=== PATIENT | female | born 1985 | race Caucasian/White ===

== ENCOUNTER 2016-10-28 05:16 | Day surgery (SDC) | payer BC, MEDICAID ==
[2016-10-25 14:16] LABS: BASOPHILS 0.3 % (0.0-2.0); EOSINOPHILS 0.4 % (0-7); HEMATOCRIT 37.5 % (36.0-48.0); HEMOGLOBIN 12.6 g/dL (12-16); LYMPHOCYTES 29.8 % (15-50); MCH 30.2 pg (26.0-34.0); MCHC 33.6 g/dL (31.0-37.0); MCV 89.9 fL (80.0-100.0); MEAN PLATELET VOLUME 9.6 fL (7.4-10.4); MONOCYTES 7.9 % (2-11); NEUTROPHILS 61.6 % (40-80); PLATELET COUNT 244 10x3/uL (130-400); RBC 4.17 10x6/uL (4.00-5.40); RDW 12.4 % (11.5-14.5); WBC 7.2 10x3/uL (4.8-10.8)
[~2016-10-28] VITALS: Ht 162.6 cm; Wt 56.7 kg
[~2016-10-28 05:16] MED LIST: OMEPRAZOLE20 M1 PO; PROZAC20 MG PO; SYNTHROID50 MCG PO
[2016-10-28 06:17] VITALS: BP 113/72; Ht 162.6 cm; Wt 56.7 kg
[2016-10-28 06:28] LABS: HCG URINE NEGATIVE (NEGATIVE)
--- NOTE | 2016-10-28 11:35 | NUR ---
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
--- NOTE | 2016-11-01 07:53 | OP ---
PATIENT NAME: TERESA HECTOR MEDICAL RECORD: [id number] :89 LOCATION:D.OPS ADMISSION DATE: SURGEON: JAELYN WESTBROOK MD DATE OF OPERATION: 10/28/2016 PREOPERATIVE DIAGNOSIS: Left ovarian cyst. POSTOPERATIVE DIAGNOSIS: Multiple simple and complex left ovarian cyst. SURGEON: Jaelyn Westbrook MD ANESTHESIA: General endotracheal anesthesia with Pradeep Cooper CRNA. PROCEDURE: 1. Diagnostic laparoscopy. 2. Left ovarian cystectomy. 3. Left ovarian cyst drainage. FINDINGS: Left ovary with multiple simple and complex appearing cyst, approximately 20-30 cc of blood was noted in the cul-de-sac upon entry. Otherwise, normal appearing uterus, right ovary, bilateral fallopian tubes, appendix and gallbladder. No endometriosis nor adhesions were visualized. DESCRIPTION OF THE PROCEDURE: After informed consent was given, the patient was taken to the operating room, where general endotracheal anesthesia was placed and found to be adequate. She was placed in a dorsal lithotomy position in [facility]. She was prepped and draped sterilely including a vaginal prep. A red rubber catheter was placed in the bladder and bladder drained with approximately 30 cc of clear urine return. A bivalve speculum was then placed in the vagina, the cervix visualized and grasped anteriorly with a single-tooth tenaculum. A Pelosi uterine manipulator was then placed with ease and the bivalve speculum was removed. The patient was placed into a ski position, gloves were changed, and infraumbilical incision was then made with the scalpel, and with elevation of the anterior abdominal wall, a 5-mm Optiview port was placed under direct visualization. No obvious injury to underlying structures was detected. The abdomen was insufflated with approximately 2 liters of CO2 gas. Entry pressure noted to be 3 mmHg. The patient was placed into Trendelenburg and the pelvic structures were brought into view with findings as listed above. Two additional 5-mm ports were placed in the right and left lower quadrant under direct visualization. The left ovary was then grasped with an atraumatic grasper and held gently on traction as a J hook was used to puncture and drain the multiple simple-appearing ovarian cyst on the left ovary. The large complex appearing cyst was also punctured and drained with an incision created in the cyst wall. Blunt dissectors were then used to remove the cyst wall and contents and these were passed off the field as specimen. The Gyrus was used to create hemostasis in the base of the ovarian cyst and the ovarian stromal wall. Excellent hemostasis was noted. The ovary and ovarian cyst cavity were irrigated profusely and noted to be hemostatic. The right ovary was well visualized as well as other pelvic structures. The appendix was visualized. The gallbladder with findings as listed above. The abdomen and pelvis were then copiously irrigated and noted to be hemostatic. The right and left lower quadrant ports were removed under direct visualization. Hemostasis was assured. The abdomen was desufflated and the 5-mm umbilical port was then removed. All 3 port sites were closed with 3-0 Monocryl in a subcuticular fashion with Dermabond, Steri-Strips, and Band-Aids applied atop. Attention was OPERATIVE REPORT [id number] TERESA HECTOR then turned again down below. The bivalve speculum was replaced into the vagina. The Pelosi uterine manipulator was removed. The single-tooth tenaculum was removed and the Bovie cautery was used to cauterize the tenaculum sites. Excellent hemostasis was noted. The bivalve speculum was removed. The patient was returned to a supine position, awakened and taken into the recovery room in stable condition. The patient tolerated procedure well. Sponge, lap, needle, and instrument counts were reported correct times 2. ESTIMATED BLOOD LOSS: Less than 50 cc. INTRAVENOUS FLUIDS: 1600 cc of crystalloid. URINE OUTPUT: 30 cc. SPECIMENS: Left ovarian cyst wall and contents. COMPLICATIONS: None. 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
== END 2016-10-28 11:15 | disposition home or self-care (01) ==
LOC: D.OPS 05:16 → D.PAN 07:30 → D.OPS 11:15
PROVIDERS: Specialist
DX: N83.202 Unspecified ovarian cyst, left side (principal); F17.200 Nicotine dependence, unspecified, uncomplicated; E03.9 Hypothyroidism, unspecified; K21.9 Gastro-esophageal reflux disease without esophagitis

== ENCOUNTER 2016-11-01 06:23 | Emergency (ER) | payer BC, MEDICAID ==
[2016-10-28 06:17] VITALS: BMI 21.5
[2016-11-01 07:36] LABS: BASOPHILS 0.1 % (0.0-2.0); EOSINOPHILS 0.3 % (0-7); HEMATOCRIT 34.5 % (36.0-48.0); HEMOGLOBIN 11.6 g/dL (12-16); IMMATURE GRANULOCYTES 0.1 % (0-5); LYMPHOCYTES 16.6 % (15-50); MCH 29.5 pg (26.0-34.0); MCHC 33.6 g/dL (31.0-37.0); MCV 87.8 fL (80.0-100.0); MEAN PLATELET VOLUME 9.5 fL (7.4-10.4); MONOCYTES 6.8 % (2-11); NEUTROPHILS 76.1 % (40-80); RBC 3.93 10x6/uL (4.00-5.40); RDW 11.9 % (11.5-14.5); WBC 8.7 10x3/uL (4.8-10.8)
[2016-11-01 07:38] LABS: PLATELET COUNT 177 10x3/uL (130-400)
[2016-11-01 07:44] LABS: INR 1.04 (0.85-1.17); PROTIME 13.5 SECONDS (11.6-15.0)
[2016-11-01 07:54] LABS: APPEARANCE CLOUDY (CLEAR); BILIRUBIN NEGATIVE (NEGATIVE); COLOR PINK (YELLOW); GLUCOSE NEGATIVE (NEGATIVE); KETONE NEGATIVE (NEGATIVE); LEUKOCYTE ESTERASE TRACE (NEGATIVE); NITRITE NEGATIVE (NEGATIVE); PROTEIN TRACE mg/dL (NEGATIVE); SPECIFIC GRAVITY 1.005 (1.005-1.020); UROBILINOGEN NORMAL (NORMAL)
[2016-11-01 07:55] LABS: ALBUMIN 4.1 g/dL (3.4-5.0); ALKALINE PHOSPHATASE 32 U/L (46-116); ALT (SGPT) 19 U/L (10-68); BILIRUBIN - TOTAL 0.19 mg/dL (0.2-1.3); CALC OSMOLALITY 278 mosm/kg (275-300); CALCIUM 9.3 mg/dL (8.5-10.1); CHLORIDE - SERUM 102 mmol/L (98-107); CREATININE - SERUM 0.5 mg/dL (0.6-1.3); GLUCOSE 97 mg/dL (74-106); LIPASE 92 U/L (73-393); POTASSIUM - SERUM 3.8 mmol/L (3.5-5.1); PROTEIN - SERUM 6.9 g/dL (6.4-8.2); SODIUM 139 mmol/L (136-145); UREA NITROGEN 14 mg/dL (7-18); eGFR NON AFRICAN AMERICAN > 90 mL/min (90-120)
[2016-11-01 07:57] LABS: AMORPHOUS SEDIMENT <1+ /lpf (NONE SEEN); BACTERIA MODERATE /hpf (NONE SEEN); RED CELLS - URINE >50 /hpf (0-5); WHITE CELLS - URINE 0-5 /hpf (0-5)
== END 2016-11-01 10:10 | disposition home or self-care (01) ==
LOC: D.ER 06:23
PROVIDERS: Emergency Medicine
DX: R51 Headache (principal); G89.18 Other acute postprocedural pain; R11.10 Vomiting, unspecified; K62.5 Hemorrhage of anus and rectum; E20.9 Hypoparathyroidism, unspecified

== ENCOUNTER 2020-07-10 12:16 | Emergency (ER) | payer SELFPAY ==
[~2020-07-10] VITALS: Ht 162.6 cm; Wt 56.8 kg
[2020-07-10 12:25] VITALS: Ht 162.6 cm; Wt 56.8 kg
[2020-07-10] MEDS ORDERED: STRATTERA10 MG PO (12:27)
[2020-07-10] MEDS ORDERED: PROPRANOLOL HCL20 MG (12:27)
[2020-07-10] MEDS ORDERED: CELEXA10 MG PO (12:28)
[2020-07-10] MEDS ORDERED: CYCLOBENZAPRINE10 MG PO (14:05)
[2020-07-10] MEDS ORDERED: HYDROCODON-ACE1 EAC7 PO (14:05)
[2020-07-10 14:56] VITALS: BP 114/75
== END 2020-07-10 14:56 | disposition home or self-care (01) ==
LOC: D.ER 12:16
DX: S06.0X9A Concussion with loss of consciousness of unspecified duration, initial encounter (principal); T14.8XXA Other injury of unspecified body region, initial encounter; W19.XXXA Unspecified fall, initial encounter; Y93.9 Activity, unspecified; Y92.9 Unspecified place or not applicable; R51.9 Headache, unspecified; M54.9 Dorsalgia, unspecified; M54.2 Cervicalgia; M79.601 Pain in right arm